=== PATIENT | female | born 1965 | race Caucasian/White ===

== ENCOUNTER 2020-08-20 09:06 | Outpatient (CLI) | payer BC, SELFPAY | END 2020-08-20 09:07 | disposition home or self-care (01) | LOC: SPT 09:12 | PROVIDERS: PCP Physician Assistant; Visit Provider Orthopaedic Surgery | DX: Z46.89 Encounter for fitting and adjustment of other specified devices (principal); S82.832D Other fracture of upper and lower end of left fibula, subsequent encounter for closed fracture with routine healing; X58.XXXD Exposure to other specified factors, subsequent encounter | CPT/HCPCS: 97760; L4361 ==

== ENCOUNTER → 2020-09-07 14:57 | Outpatient (BNVA) | payer BC, SELFPAY | PROVIDERS: PCP Physician Assistant; Visit Provider Orthopaedic Surgery | DX: Z20.822 Contact with and (suspected) exposure to COVID-19 (principal); S82.892A Other fracture of left lower leg, initial encounter for closed fracture; X58.XXXA Exposure to other specified factors, initial encounter | CPT/HCPCS: 73610; 87635 ==

== ENCOUNTER 2020-09-10 09:15 | Day surgery (SDC) | payer BC, SELFPAY ==
[2020-09-09 09:15] VITALS: BMI 33.9
[2020-09-10] VITALS (7 sets, daily range): BP systolic 112–142; BP diastolic 71–86; PULSE 85–109; RESP 16–18; TEMP 36.4–37.2; O2SAT 93–98
--- NOTE | 2020-09-10 | XR_ITS ---
WS: [id number] C-ARM RADIOGRAPHS LEFT ANKLE; 4 IMAGES HISTORY: left distal fibula fracture COMPARISON: 09/07/2020. Intraoperative imaging during distal fibular plate and screw fixation and syndesmosis screw through t he distal tibia. Normal alignment. Ankle mortise is now normal. XR/XR ankle LT min 3V* [id number] IMPRESSION: Fixation distal fibular fracture and syndesmosis screw with correction of the a nkle mortise disruption.
--- NOTE | 2020-09-10 | SCC_ITS ---
Procedure Done: ORIF lateral malleolus with rduction and fixation of syndesmosis 30.5 seconds of fluoroscopic guidance, for a cumulative dose of 1.03 mGy, was provided to Dr. Gage by the radiology department. C-arm images of the LEFT ankle were saved for the patient's permanent record. [facility] CENTERMerari
[2020-09-10 10:01] LABS: Glucose Point of Care 114 mg/dL (70-110)
--- NOTE | 2020-09-10 10:10 | ANES.PREANE2 ---
Pre-Anesthetic Assessment Pre-Anesthetic Assessment: Height/Weight: Height 1.68 m Weight 95.254 kg Temp Pulse Resp BP Pulse Ox 97.6 F 99 18 140/86 96 09/10/20 09:44 09/10/20 09:44 09/10/20 09:44 09/10/20 09:44 09/10/20 09:44 Preop Diagnosis: ankle fracture left Proposed Procedure: Operation Date: 09/10/20 11:15 Proposed Procedures p ORIF Ankle(Left) - Rocco Gage, DO Familial anesthetic complications: hard to wake up- sleepy after Was Beta Ferny taken within 24 hours: N/A Last intake: Intake Last Liquid Date 09/09/20 Last Liquid Time 18:00 Last Solid Date 09/09/20 Last Solid Time 17:00 Social: Social History: No alcohol and No tobacco Exam: Pre-Anes Outpt Exam: alert, oriented x 3, clear to auscultation bilaterally and regular rate & rhythm Airway: Cervical ROM: WNL MP: 2 Dentition: Full CV/HEM: CV/HEM: HTN Metabolic: Metabolic: Hyperlipidemia Anesthetic Plan: ASA status: 2 Anesthesia: General and Regional (specify below) (per surgeon request) Other: Patient has alopecia and wears wigs, she would like to leave her wig on during surgery and in recovery. Informed patient of possibilty of wig getting soiled with body fluids. She says wig is washable. Risk of > 500 ml blood loss (7ml/kg in children): No PFSH Anesthesia PFSH: Medical History Recurrent UTI Social History Smoking and tobacco status: current some day smoker cigarettes Data Anesthesia Other Labs: Laboratory Results - last 48 hr 09/10/20 09:58 POC Glucose 114 H Cardiac Studies: No Data to Display
[2020-09-10] MEDS: sodium chloride 0.9% 1,000 ML 30 ML IV (10:15)
[2020-09-10] MEDS: midazolam 1 mg/mL INJ 2 mL 2 MG IVP (10:32)
--- NOTE | 2020-09-10 10:46 | ANES.PROC ---
Anesthesia Procedures Procedure/Date: 09/10/20 Nerve Block ^: Nerve Block 1: Main Anesthesia: general anesthesia Time Out Performed: Yes Consent: requested by attending/covering physician, from patient and from other Nerve block location: popliteal (L) Anesthesia monitors applied: pulse oximetry, EKG, BP cuff and oxygen Nerve block position: supine Anesthetic Used: ropivicaine 0.5% and with decadron (4 mg) Amount of anesthesia used (mL): 30 Ultrasound used to: recognize landmarks Nerve Stimulator Used?: No Interscalene/Femoral BLK: 4 stimuplex 21 g needle used for position and inplane approach, visualize local anesthetic spread and no vascular puncture identified Injection: neg aspiration of heme Complications: none
--- NOTE | 2020-09-10 11:36 | W.PM.OPSUD ---
Surgery/Procedure H&P Update DATE OF PROCEDURE: September 10, 2020 DATE H&P PERFORMED: 09/07/20 H&P UPDATE INFORMATION: I have reviewed H&P completed within last 30 days and I have examined patient prior to procedure PREOP DIAGNOSIS: ankle fracture left PLANNED PROCEDURE: Operation Date: 09/10/20 11:15 Proposed Procedures p ORIF Ankle(Left) - Rocco Gage DO
--- NOTE | 2020-09-10 12:42 | PM.OP ---
Operative Report Date of procedure: September 10, 2020 Pre-op Diagnosis: ankle fracture left Post-op diagnosis: same Procedure Done: ORIF lateral malleolus with rduction and fixation of syndesmosis Surgeon: Rocco Gage Anesthesia: General Estimated blood loss (mL): 10 Condition: stable Disposition: PACU Procedure: ORIF lateral malleolus with rduction and fixation of syndesmosis Patient was brought to the operative suite placed in supine position. All areas patient well-padded. Patient was prepped and draped in a sterile fashion. Skin was made over the lateral malleolus. Fracture was identified and fibrous tissue was taken down fracture was reduced and a one third tubular plate is placed on the posterior aspect of the fibula. 2 screws were placed distal fracture 3 screws placed proximal to fracture and then syndesmosis was reduced using a [id number] reduction clamp and then a syndesmotic screw was placed through the plate into the tibia holding the syndesmosis reduced. Wounds were irrigated and closed with Vicryl and nylon suture sterile dressings applied and patient was placed in a posterior splint. Patient transferred to the PACU in stable condition
--- NOTE | 2020-09-10 16:29 | ANE.PACU2 ---
Inpatient post-anesthesia follow up: Vital signs: Temperature 99 F Pulse Rate 100 Respiratory Rate 16 Blood Pressure 138/86 Pulse Oximetry 94 Oxygen Delivery Me thod Room Air Oxygen Flow Rate 8 Fraction of Inspir ed Oxygen Hydration adequate: Yes Nausea and vomiting: No Pain level: 2 Mental status: Baseline
== END 2020-09-10 13:55 | disposition home or self-care (01) ==
PROVIDERS: PCP Physician Assistant; Visit Provider Orthopaedic Surgery
PROC: (CPT 27792; principal; 2020-09-10 11:15)
DX: S82.839A Other fracture of upper and lower end of unspecified fibula, initial encounter for closed fracture (principal); X58.XXXA Exposure to other specified factors, initial encounter; I10 Essential (primary) hypertension; E78.5 Hyperlipidemia, unspecified; F17.210 Nicotine dependence, cigarettes, uncomplicated
CPT/HCPCS: 27792; 12345; 36416; 64450; 73610; 76000; 76942; 82962; 96374; C1713; J0690; J2250; J2405; J2704; J3010; J7030

== ENCOUNTER → 2020-10-21 11:12 | Outpatient (BNVA) | payer BC, SELFPAY | PROVIDERS: PCP Physician Assistant; Visit Provider Orthopaedic Surgery | DX: S82.892A Other fracture of left lower leg, initial encounter for closed fracture (principal); Z48.89 Encounter for other specified surgical aftercare; N39.0 Urinary tract infection, site not specified; X58.XXXA Exposure to other specified factors, initial encounter | CPT/HCPCS: 73610 ==

== ENCOUNTER 2020-10-25 14:55 | Outpatient (RCR) | payer BC, SELFPAY | END 2020-10-31 23:59 | disposition home or self-care (01) | LOC: SPT 14:55 | PROVIDERS: PCP Physician Assistant; Referring Provider Orthopaedic Surgery; Visit Provider Orthopaedic Surgery | DX: Z47.89 Encounter for other orthopedic aftercare (principal) | CPT/HCPCS: 97110; 97161 ==

== ENCOUNTER → 2021-04-14 14:30 | Outpatient (BNVA) | payer BC, SELFPAY | PROVIDERS: PCP Physician Assistant; Visit Provider Nurse Practitioner Family | DX: N39.0 Urinary tract infection, site not specified (principal) | CPT/HCPCS: 81003 ==

== ENCOUNTER → 2024-09-07 12:03 | Outpatient (BNVA) | payer BC, SELFPAY | PROVIDERS: PCP Physician Assistant | DX: R39.9 Unspecified symptoms and signs involving the genitourinary system (principal); N39.0 Urinary tract infection, site not specified; S82.839A Other fracture of upper and lower end of unspecified fibula, initial encounter for closed fracture; X58.XXXA Exposure to other specified factors, initial encounter | CPT/HCPCS: 81000; 87086 ==